=== PATIENT | male | born 1990 | race Caucasian/White ===

== ENCOUNTER 2018-10-09 10:32 | Emergency (ER) | payer BC ==
[~2018-10-09] VITALS: Ht 177.8 cm; Wt 70.5 kg
[2018-10-09 10:51] VITALS: BP 134/86
[2018-10-09 12:21] VITALS: PULSE 75; TEMP 97.5
== END 2018-10-09 12:21 | disposition home or self-care (01) ==
LOC: COL.ER 10:32
DX: K40.90 Unilateral inguinal hernia, without obstruction or gangrene, not specified as recurrent (principal)

== ENCOUNTER 2019-03-29 10:29 | Day surgery (SDC) | payer BC ==
[2019-03-29] VITALS (7 sets, daily range): BP systolic 110–138; BP diastolic 62–80; PULSE 73–87; TEMP 97.7–98.3
[~2019-03-29] VITALS: Ht 177.8 cm; Wt 72.9 kg
--- NOTE | 2019-03-29 14:55 | NUR ---
Pt to [facility] via cart from PACU. Pt awake and alert. Pt states "I have just a little bit of pain when I move, but I'm ok." Pt denies nausea. Pt tolerating sips of water without difficulties. Incision sites to abdomen x3 are clean and dry with trammell site intact. Sprite given per pt request. Mother in room. Call light within reach.
--- NOTE | 2019-03-29 15:10 | NUR ---
Pt continues to rest. Denies needs. Call light within reach.
--- NOTE | 2019-03-29 15:25 | NUR ---
Pt wanting to sleep. HOB lowered. Light dimmed. Will continue to monitor. Call light within reach.
[2019-03-29] MEDS ORDERED: NORCO 325 MG-51 TAB PO (15:31)
--- NOTE | 2019-03-29 15:40 | NUR ---
Pt sleeping. Respirations even and unlabored. Call light within reach.
--- NOTE | 2019-03-29 16:10 | NUR ---
Pt awake. Chocolate pudding and water given per pt request. Denies further needs. Call light within reach.
--- NOTE | 2019-03-29 16:30 | NUR ---
Pt tolerating food and fluids without difficulties. Pt requesting to be premedicated for pain for the ride home. [place] 5mg 1 tablet po and Motrin 600mg 1 tablet po given per prn orders. Will continue to monitor.
--- NOTE | 2019-03-29 16:40 | NUR ---
Pt up to restroom with stand by assist. Pt voids large amount without difficulties. Pt back to room. Pt dizzy and light headed with movement. Pt lying back down. Encouraged to rest. Report given to Ashley COTA. Questions invited and answered.
--- NOTE | 2019-03-29 17:25 | NUR ---
PATIENT STATED HE IS FEELING BETTER RECEIVED DISCHARGE INSTRUCTIONS AND VERBALIZED UNDERSTANDING. DISCONTINUED IV AND INT- CATHETER INTACT.
--- NOTE | 2019-03-29 17:35 | NUR ---
DISCHARGED PER WC BY NURSING STAFF TO PRIVATE CAR IN CARE OF MOTHER-NATE
== END 2019-03-29 18:00 | disposition home or self-care (01) ==
LOC: SDCO 10:29
DX: K40.90 Unilateral inguinal hernia, without obstruction or gangrene, not specified as recurrent (principal); Z85.828 Personal history of other malignant neoplasm of skin
CPT/HCPCS: C1781; J0690; J1100; J1885; J2270; J2405; J2704; J2710; J3010; J7120